=== PATIENT | male | born 1965 ===

== ENCOUNTER 2018-04-10 16:43 | Observation (INO) | payer OTHER ==
[2018-04-10] MEDS ORDERED: Sodium Chloride 0.9% 500 ML IV STA (17:30)
--- NOTE | 2018-04-10 17:30 | ED PDOC ---
Arrival/HPI - General Chief Complaint: Trauma Time Seen by Provider: 04/10/18 16:48 Historian: Patient - History of Present Illness Narrative History of Present Illness (Text): 04/10/18 17:27 53-year-old male with a history of HIV and diabetes presents today with headache neck pain low back pain and right foot pain status post fall. Patient states yesterday he slipped and fell down 4 stairs hitting his head injuring his neck and low back on the steps. Patient states he also twisted and injured his ankle and foot. No medications have been taken for pain at home. Patient denies nausea vomiting diarrhea or constipation. Patient denies abdominal pain. He denies decreased appetite. He denies bladder or bowel incontinence. Patient states he has a history of neuropathy so he has chronic paresthesias in the lower extremities. Past Medical History - Provider Review Nursing Documentation Reviewed: Yes - Travel History Have you recently traveled outside [place] w/in the past 3 mons?: No - Tetanus Immunization Tetanus Immunization: Unknown - Cardiac Hx Cardiac Disorders: No - Pulmonary Hx Respiratory Disorders: No - Neurological Hx Neurological Disorder: No - HEENT Hx HEENT Disorder: No - Renal Hx Renal Disorder: No - Endocrine/Metabolic Hx Endocrine Disorders: Yes Hx Diabetes Mellitus Type 2: Yes - Hematological/Oncological Hx Blood Disorders: Yes - Integumentary Hx Dermatological Disorder: No - Musculoskeletal/Rheumatological Hx Musculoskeletal Disorders: Yes - Gastrointestinal Hx Gastrointestinal Disorders: No - Genitourinary/Gynecological Hx Genitourinary Disorders: No - Psychiatric Hx Psychophysiologic Disorder: No Hx Substance Use: No - Surgical History Hx Orthopedic Surgery: Yes (R KNEE) Family/Social History - Physician Review Nursing Documentation Reviewed: Yes Family/Social History: Unknown Family HX Smoking Status: Current Some Days Smoker Hx Alcohol Use: Yes Frequency of alcohol use: Socially Hx Substance Use: No Allergies/Home Meds Allergies/Adverse Reactions: Allergies Sulfa (Sulfonamide Antibiotics) Allergy (Verified 04/11/18 00:16) RASH Home Medications: Home Meds Medication Instructions Recorded Confirmed Unobtainable 04/10/18 04/10/18 Emtricitab/Rilpiviri/Tenof Ala 1 each PO DAILY 04/11/18 04/11/18 [Odefsey Tablet] Gabapentin [Neurontin] 300 mg PO DAILY 04/11/18 04/11/18 Ranitidine HCl [Zantac 300] 300 mg PO HS 04/11/18 04/11/18 valACYclovir [Valtrex] 1 gm PO DAILY 04/11/18 04/11/18 Review of Systems - Review of Systems Constitutional: absent: Fatigue, Fevers Respiratory: absent: SOB, Cough Cardiovascular: absent: Chest Pain, Palpitations Gastrointestinal: absent: Abdominal Pain, Constipation, Diarrhea, Nausea, Vomiting, Appetite Changes Genitourinary Male: absent: Dysuria, Frequency, Hematuria Musculoskeletal: Arthralgias (right foot/ankle pain), Back Pain, Neck Pain Neurological: Headache. absent: Dizziness Physical Exam Vital Signs Reviewed: Yes Vital Signs Temp Pulse Resp BP Pulse Ox 04/10/18 16:50 98.4 F 90 17 116/67 97 Temperature: Afebrile Blood Pressure: Normal Pulse: Regular Respiratory Rate: Normal Appearance: Positive for: Well-Appearing, Non-Toxic, Comfortable Pain Distress: None Mental Status: Positive for: Alert and Oriented X 3 - Systems Exam Head: Present: Atraumatic Pupils: Present: PERRL Extroacular Muscles: Present: EOMI Ears: Present: Normal, NORMAL TM Mouth: Present: Moist Mucous Membranes Pharnyx: Present: Normal Neck: Present: Normal Range of Motion, Paraspinal Tenderness. No: MIDLINE TENDERNESS Respiratory/Chest: Present: Clear to Auscultation, Good Air Exchange. No: Respiratory Distress, Accessory Muscle Use, Tender to Palpation Cardiovascular: Present: Regular Rate and Rhythm Abdomen: Present: Other (no ecchymosis). No: Tenderness, Distention, Rebound, Guarding Back: Present: Paraspinal Tenderness (+ right flank tenderness; + large area of ecchymosis extending from the buttock to the mid right flank + induration and tenderness. ). No: Normal Inspection, CVA Tenderness, Midline Tenderness Upper Extremity: Present: Normal ROM Lower Extremity: Present: NORMAL PULSES, Normal ROM, Tenderness, Swelling, Neurovascularly Intact, Capillary Refill < 2 s, Other (Pelvis stable; + ttp over anterior thigh, no hip tenderness. no edema or erythema or ecchymosis noted. full rom of hip , knee, foot ankle. ). No: CALF TENDERNESS, Erythema Neurological: Present: GCS=15, Speech Normal Skin: Present: Warm, Dry, Normal Color Psychiatric: Present: Alert, Oriented x 3 Medical Decision Making ED Course and Treatment: 04/11/18 01:37 53yr old diabetic male with hx of HIV with right foot/ankle, back, neck pain s/p fall. pt with LARGE area of ecchymosis to right flank. cbc; wbc; 12.6 cmp; bun 39/ cr 1.2 pt/ptt wnl xray; right ankle' no fracture xray right foot no fracture xray right hip ; no fracture ct head; FINDINGS: BRAIN No acute intraparenchymal hemorrhage. No mass lesion. No CT evidence for acute territorial infarct. No midline shift or extra-axial collections. Minimal focal calcification is seen within the basal ganglia bilaterally; usually an idiopathic finding. VENTRICLES: No hydrocephalus. ORBITS: The orbits are unremarkable. SINUSES AND MASTOIDS: The paranasal sinuses and mastoid air cells are clear. BONES: No fracture. SOFT TISSUES: Unremarkable. IMPRESSION: No acute intracranial abnormality. Electronically signed on Apr 10, 2018 7:35:32 PM EST by: Nick Candelaria M.D., ALDO Certified By ABR & CBCCT Fellowship Trained MRI and CT Specialist ct c-spine: FINDINGS: ALIGNMENT: Bony alignment is anatomic. DEGENERATIVE CHANGES: There is mild hypertrophic and degenerative changes at the C3-C4 C4-C5 C5-C6 and C6-C7 levels. SOFT TISSUES: The prevertebral soft tissues are within normal limits. BONES: No acute fracture or aggressive appearing osseous lesion. IMPRESSION: No acute cervical spine abnormality. Mild hypertrophic and degenerative changes. Electronically signed on Apr 10, 2018 7:51:03 PM EST by: Bob Branch M.D., Certified by ABR, Diagnostic Radiology ct chest/abd/pelvis; FINDINGS: CHEST: LUNGS: No pulmonary mass. The lungs appear essentially clear. PLEURAL SPACES: No pneumothorax evident. No pleural effusions. HEART: No cardiomegaly. No pericardial effusion. LYMPH NODES: No lymphadenopathy is evident. ABDOMEN AND PELVIS: LIVER: Mild hepatomegaly. The liver measured an estimated 17.6 cm in the midclavicular line. No focal lesions. GALLBLADDER AND BILE DUCTS: The gallbladder appears within normal limits. No radioopaque gallstones are seen. No biliary ductal dilatation is evident. PANCREAS: Unremarkable. SPLEEN: Unremarkable. ADRENAL GLANDS: Unremarkable. KIDNEYS, URETERS, AND BLADDER: Unremarkable. No hydronephrosis or nephrolithiasis. No uterteral or bladder calculi. The urinary bladder is normal in size and configuration. STOMACH AND BOWEL: There is some retained food debris noted within the stomach. No evidence of bowel obstruction. No evidence suggesting enteritis or colitis. APPENDIX: No evidence of acute appendicitis on CT examination. PERITONEUM: No free fluid. No free air. LYMPH NODES: No lymphadenopathy is evident. VASCULATURE: No evidence of abdominal aortic aneurysm. REPRODUCTIVE: The seminal vesicles appeared normal and symmetrical in size. There is prostatic hypertrophy noted. The prostate gland measured 5.6 cm transversely. BONES: No acute osseous abnormality. SOFT TISSUES: A large lower right flank subcutaneous hematoma (density measurement 65.5 HU) is noted measuring approximately 12.2 x 5.0 cm in cranial-caudal and AP dimensions respectively. IMPRESSION: 1. No acute intra-thoracic abnormality. 2. Hepatomegaly. 3. Prostatic hypertrophy. Measurement is given above. 4. A large lower posterior right flank subcutaneous hematoma is identified as described above. Electronically signed on Apr 10, 2018 8:24:53 PM EST by: Nick Candelaria M.D., ALDO Certified By ABR & CBCCT Fellowship Trained MRI and CT Specialist pt feeling slightly better after medications; states morphine worked initially, but pain has returned slightly. all results discussed in depth with patient and his . case discussed with dr. dias; will admit observational status for monitoring H&H will get surgical consult dr. bhat case discussed with resident care supervisor dr. turner who evaluated patient at bedside. pt seen and evaluated by dr. Martin. impression; hematoma, back, head injury, neck pain, leg pain, ankle pain, foot pain admit observational status to med/surg Reassessment Condition: Re-examined, Improving,but remains with symptoms - RAD Interpretation Radiology Orders: 04/10/18 17:20 CERVICAL SPINE W/O CONTRAST [CT] Stat CHEST,ABD,PEL W/IV CONT ONLY [CT] Stat HEAD W/O CONTRAST [CT] Stat Disposition/Present on Arrival - Present on Arrival Any Indicators Present on Arrival: No History of DVT/PE: No History of Uncontrolled Diabetes: No Urinary Catheter: No History of Decub. Ulcer: No History Surgical Site Infection Following: None - Disposition Have Diagnosis and Disposition been Completed?: Yes Diagnosis: Back pain, Traumatic hematoma of lower back, Ankle pain, Foot pain, Leg pain, Neck pain, Head injury Disposition: HOSPITALIZED Disposition Time: 19:40 Patient Plan: Observation Condition: FAIR
[2018-04-10 17:48] LABS: BASO # 0.03 K/mm3 (0.0-2.0); BASO % 0.2 % (0.0-3.0); EOS % 0.2 % (1.5-5.0); INR 1.01; LYMPH % 15.5 % (22.0-35.0); MEAN CELL VOLUME 86.5 fl (80.0-105.0); MEAN CORPUSCULAR HEMOGLOBIN 30.1 pg (25.0-35.0); MEAN CORPUSCULAR HGB CONC 34.8 g/dl (31.0-37.0); MEAN PLATELET VOLUME 11.8 fl (7.0-11.0); MONO % 8.2 % (1.0-6.0); PARTIAL THROMBOPLASTIN TIME 28.7 Seconds (26.9-38.3); PROTHROMBIN TIME 11.2 SECONDS (9.4-12.5); RBC 3.99 10^6/uL (3.5-6.1); RED CELL DISTRIBUTION WIDTH 14.3 % (11.5-14.5); WHITE BLOOD COUNT 12.6 10^3/uL (4.5-11.0)
[2018-04-10 17:53] LABS: ALB/GLOB RATIO 1.4 (1.1-1.8); ALBUMIN 4.2 g/dL (3.0-4.8); ALT/SGPT 35 U/L (7-56); AST/SGOT 60 U/L (17-59); BLOOD UREA NITROGEN 39 mg/dL (7-21); CALCIUM 8.8 mg/dL (8.4-10.5); GFR NON-AFRICAN AMERICAN > 60
[2018-04-10 18:10] LABS: URINE BILIRUBIN NEGATIVE (NEGATIVE); URINE BLOOD NEGATIVE (NEGATIVE); URINE GLUCOSE (UA) NEGATIVE (NEGATIVE); URINE LEUKOCYTE ESTERASE NEGATIVE Leu/uL (NEGATIVE); URINE PROTEIN NEGATIVE mg/dL (<30 mg/dL); URINE UROBILINOGEN 0.2 E.U./dL (<1 E.U./dL)
[2018-04-10 18:16] LABS: URINE APPEARANCE CLEAR (CLEAR); URINE COLOR YELLOW (YELLOW)
[2018-04-10] MEDS ORDERED: Morphine 2 mg/ml ISec IVP STA ×2 (18:42→21:37)
[2018-04-10] MEDS ORDERED: Iohexol 350 MG/100 ML VIAL ONE (18:47)
[2018-04-10] MEDS: Sodium Chloride 0.9% 1,000 ML IV SCH (22:13)
--- NOTE | 2018-04-10 23:44 | CP.PCM.CON ---
History of Present Illness - History of Present Illness History of Present Illness: General Surgery Consult for Dr. Aparicio This is a 53M with a PMH of HTN, HIV, DM, who presents after he slipped down the stairs 3 days ago. He reports he hurt his right flank however he came to the hospital now because of the purple discoloration of his skin (echymosis). He denies any diziness or SOB. He deneis any chest pain fevers chills or SOB. He denies any bloody bowel movements or bloody urine. He is tolerating diet. PMH: HIV, HTN PSH: Appendix, Knee ALL: NKDA Social: Denies Vices Review of Systems - Review of Systems Review of Systems: 12 point review of symptoms conducted and negative aside from pain over hematoma. Past Patient History - Tetanus Immunizations Tetanus Immunization: Unknown - Past Social History Smoking Status: Current Some Days Smoker - CARDIAC Hx Cardiac Disorders: No - PULMONARY Hx Respiratory Disorders: No - NEUROLOGICAL Hx Neurological Disorder: No - HEENT Hx HEENT Problems: No - RENAL Hx Chronic Kidney Disease: No - ENDOCRINE/METABOLIC Hx Endocrine Disorders: Yes Hx Diabetes Mellitus Type 2: Yes - HEMATOLOGICAL/ONCOLOGICAL Hx Blood Disorders: Yes - INTEGUMENTARY Hx Dermatological Problems: No - MUSCULOSKELETAL/RHEUMATOLOGICAL Hx Musculoskeletal Disorders: Yes - GASTROINTESTINAL Hx Gastrointestinal Disorders: No - GENITOURINARY/GYNECOLOGICAL Hx Genitourinary Disorders: No - PSYCHIATRIC Hx Psychophysiologic Disorder: No Hx Substance Use: No - SURGICAL HISTORY Hx Orthopedic Surgery: Yes (R KNEE) Meds Allergies/Adverse Reactions: Allergies Allergy/AdvReac Type Severity Reaction Status Date / Time Sulfa (Sulfonamide Allergy RASH Verified 04/11/18 00:16 Antibiotics) - Medications Medications: Current Medications Sodium Chloride (Sodium Chloride 0.9%) 1,000 mls @ 100 mls/hr IV .Q10H CHARITY Last Admin: 04/10/18 22:13 Dose: 100 mls/hr Physical Exam - Constitutional Appears: Non-toxic, No Acute Distress - Head Exam Head Exam: ATRAUMATIC, NORMOCEPHALIC - Eye Exam Eye Exam: EOMI - ENT Exam ENT Exam: Mucous Membranes Moist - Respiratory Exam Respiratory Exam: NORMAL BREATHING PATTERN - Cardiovascular Exam Cardiovascular Exam: +S1, +S2 - GI/Abdominal Exam GI & Abdominal Exam: Soft. absent: Distended, Firm, Guarding, Hernia, Rebound, Rigid, Tenderness - Extremities Exam Extremities exam: Positive for: normal inspection - Back Exam Additional comments: Large flank echymosis with flank hematoma on right side - Skin Skin Exam: Dry, Intact Results - Vital Signs Recent Vital Signs: Last Vital Signs Temp 98.4 F 04/10/18 16:50 Pulse 70 04/10/18 22:00 Resp 18 04/10/18 22:00 BP 120/74 04/10/18 22:00 Pulse Ox 98 04/10/18 22:00 - Labs Result Diagrams: 04/10/18 17:30 04/10/18 17:30 Labs: Laboratory Results - last 24 hr 04/10/18 04/10/18 04/10/18 17:30 17:30 17:30 WBC 12.6 H RBC 3.99 Hgb 12.0 L Hct 34.5 L MCV 86.5 MCH 30.1 MCHC 34.8 RDW 14.3 Plt Count 206 MPV 11.8 H Neut % (Auto) 75.9 H Lymph % (Auto) 15.5 L [place] % (Auto) 8.2 H Eos % (Auto) 0.2 L Baso % (Auto) 0.2 Lymph # (Auto) 2.0 [place] # (Auto) 1.0 H Eos # (Auto) 0.0 Baso # (Auto) 0.03 Absolute Neuts (auto) 9.58 H PT 11.2 INR 1.01 APTT 28.7 Sodium 136 Potassium 4.0 Chloride 104 Carbon Dioxide 24 Anion Gap 12 BUN 39 H Creatinine 1.2 Est GFR ( Amer) > 60 Est GFR (Non-Af Amer) > 60 Random Glucose 114 H Calcium 8.8 Total Bilirubin 0.6 AST 60 H ALT 35 Alkaline Phosphatase 53 Total Protein 7.4 Albumin 4.2 Globulin 3.1 Albumin/Globulin Ratio 1.4 Urine Color Urine Appearance Urine pH Ur Specific Isabel Urine Protein Urine Glucose (UA) Urine Ketones Urine Blood Urine Nitrate Urine Bilirubin Urine Urobilinogen Ur Leukocyte Esterase 04/10/18 17:50 WBC RBC Hgb Hct MCV MCH MCHC RDW Plt Count MPV Neut % (Auto) Lymph % (Auto) [place] % (Auto) Eos % (Auto) Baso % (Auto) Lymph # (Auto) [place] # (Auto) Eos # (Auto) Baso # (Auto) Absolute Neuts (auto) PT INR APTT Sodium Potassium Chloride Carbon Dioxide Anion Gap BUN Creatinine Est GFR ( Amer) Est GFR (Non-Af Amer) Random Glucose Calcium Total Bilirubin AST ALT Alkaline Phosphatase Total Protein Albumin Globulin Albumin/Globulin Ratio Urine Color Yellow Urine Appearance Clear Urine pH 6.0 Ur Specific Isabel >= 1.030 Urine Protein Negative Urine Glucose (UA) Negative Urine Ketones Negative Urine Blood Negative Urine Nitrate Negative Urine Bilirubin Negative Urine Urobilinogen 0.2 Ur Leukocyte Esterase Negative - Imaging and Cardiology CT scan - pelvis Status: Image reviewed by me CT scan - abdomen Status: Image reviewed by me Assessment & Plan - Assessment and Plan (Free Text) Assessment: 53M s/p fall day 3 with right gluteal hematoma No surgical managment at this time Follow h/h Will continue to monitor D/W Dr. Markus Braga PGY3
[2018-04-11] MEDS ORDERED: Influenza Vaccine 60 mcg/0.5 mL SYR (4YR UP) IM ONE (00:46)
[2018-04-11] MEDS ORDERED: Pneumococcal 23-Valent Vaccine IM ONE (00:46)
[2018-04-11 00:47] VITALS: BMI 34.7
[2018-04-11 01:18] VITALS: PULSE 77; TEMP 98.1
[2018-04-11] MEDS: Sodium Chloride 0.9% 1,000 ML IV SCH (02:35)
--- NOTE | 2018-04-11 08:33 | RAD ---
Date of service: 04/10/2018 PROCEDURE: Right Foot Radiographs. HISTORY: foot pain/ ankle pain COMPARISON: None. FINDINGS: BONES: No acute fracture or destructive bony lesion identified. JOINTS: Dorsiflexion deformity of the 5th metatarsophalangeal joint with hyperflexion at the interphalangeal joint of the small digit. Both likely related to congenital foreshortening of the 5th metatarsal bone. SOFT TISSUES: Normal. OTHER FINDINGS: None. IMPRESSION: No acute fracture or dislocation. 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
--- NOTE | 2018-04-11 08:34 | RAD ---
Date of service: 04/10/2018 PROCEDURE: Right Ankle Radiographs. HISTORY: foot pain/ankle pain s/p fall COMPARISON: None available. FINDINGS: BONES: No acute fracture or destructive bony lesion identified. JOINTS: Normal. No osteoarthritis. Ankle mortise maintained. Talar dome intact SOFT TISSUES: Normal. OTHER FINDINGS: None. IMPRESSION: Unremarkable right ankle radiographs.
[2018-04-11 08:40] LABS: HEMOGLOBIN 10.9 g/dL (14.0-18.0); MEAN CELL VOLUME 87.5 fl (80.0-105.0); MEAN CORPUSCULAR HEMOGLOBIN 29.5 pg (25.0-35.0); MEAN CORPUSCULAR HGB CONC 33.7 g/dl (31.0-37.0); RBC 3.69 10^6/uL (3.5-6.1); WHITE BLOOD COUNT 7.4 10^3/uL (4.5-11.0)
--- NOTE | 2018-04-11 08:49 | CT ---
Date of service: 04/10/2018 PROCEDURE: CT HEAD WITHOUT CONTRAST. HISTORY: headache COMPARISON: None available. TECHNIQUE: Axial computed tomography images were obtained through the head/brain without intravenous contrast. Radiation dose: Total exam DLP = 1045.67 mGy-cm. This CT exam was performed using one or more of the following dose reduction techniques: Automated exposure control, adjustment of the mA and/or kV according to patient size, and/or use of iterative reconstruction technique. FINDINGS: HEMORRHAGE: No intracranial hemorrhage. BRAIN: No mass effect or edema. No atrophy or chronic microvascular ischemic changes. VENTRICLES: Unremarkable. No hydrocephalus. CALVARIUM: Unremarkable. PARANASAL SINUSES: Unremarkable as visualized. No significant inflammatory changes. MASTOID AIR CELLS: Unremarkable as visualized. No inflammatory changes. OTHER FINDINGS: The report concurs with the preliminary [facility] report IMPRESSION: No acute intracranial findings
--- NOTE | 2018-04-11 08:51 | CT ---
Date of service: 04/10/2018 PROCEDURE: CT Cervical Spine without contrast HISTORY: neck pain COMPARISON: None available. TECHNIQUE: Axial computed tomography images were obtained of the cervical spine without the use of intravenous contrast. Coronal and sagittal reformatted images were created and reviewed. Radiation dose: Total exam DLP = 537.4 mGy-cm. This CT exam was performed using one or more of the following dose reduction techniques: Automated exposure control, adjustment of the mA and/or kV according to patient size, and/or use of iterative reconstruction technique. FINDINGS: VERTEBRAE: No fracture. Normal alignment. No destructive bony lesion. DISCS/SPINAL CANAL/NEURAL FORAMINA: No significant central canal or neural foraminal stenosis. Discs heights are grossly preserved. PARASPINAL SOFT TISSUES: Unremarkable. OTHER FINDINGS: The report concurs with the preliminary [facility] report IMPRESSION: Unremarkable CT of the cervical spine.
--- NOTE | 2018-04-11 09:04 | CT ---
Date of service: 04/10/2018 PROCEDURE: CT Chest, Abdomen and Pelvis without intravenous contrast HISTORY: fall down stairs; right sided flank bruise COMPARISON: None available. TECHNIQUE: Radiation dose: Total exam DLP = 1926.69 mGy-cm. This CT exam was performed using one or more of the following dose reduction techniques: Automated exposure control, adjustment of the mA and/or kV according to patient size, and/or use of iterative reconstruction technique. FINDINGS: CT CHEST WITHOUT CONTRAST: LUNGS: Clear. No nodule, mass or consolidation. MEDIASTINUM: Unremarkable. Normal caliber aorta and pulmonary arterial trunk. Normal size heart. LYMPH NODES: Unremarkable. PLEURA: Unremarkable. No pneumothorax. No pleural fluid. BONES: Unremarkable. OTHER FINDINGS: None. CT ABDOMEN AND PELVIS: LIVER: Unremarkable. No gross lesion or ductal dilatation. GALLBLADDER AND BILE DUCTS: Unremarkable. PANCREAS: Unremarkable. No gross lesion or ductal dilatation. SPLEEN: Unremarkable. ADRENALS: Unremarkable. No mass. KIDNEYS AND URETERS: Unremarkable. No hydronephrosis. No solid mass. VASCULATURE: No aortic atherosclerotic calcification or mural plaque present. Unremarkable. No aortic aneurysm. BOWEL: Unremarkable. No obstruction. No gross mural thickening. APPENDIX: Normal appendix. PERITONEUM: Unremarkable. No free fluid. No free air. LYMPH NODES: Unremarkable. No enlarged lymph nodes. BLADDER: Unremarkable. REPRODUCTIVE: Unremarkable. BONES: No acute fracture. OTHER FINDINGS: There is a subcutaneous hematoma over the right flank at the level of the iliac crests measuring 4.5 x 10.2 x 12.6 cm. The report concurs with the preliminary [facility] report IMPRESSION: Subcutaneous right flank hematoma. No acute intra-abdominal or intrathoracic abnormalities
--- NOTE | 2018-04-11 09:14 | RAD ---
Date of service: 04/10/2018 PROCEDURE: Right Femur Radiographs. HISTORY: right thigh pain s/p fall COMPARISON: None. TECHNIQUE: AP and Lateral Radiographs of the right femur. FINDINGS: FEMUR: No acute fracture or destructive bony lesion identified. Small bone island is identified at the intertrochanteric space proximal right femur. SOFT TISSUES: Normal. OTHER FINDINGS: None. IMPRESSION: Unremarkable radiographs of the right femur.
[2018-04-11 09:42] VITALS: BP 113/69; RESP 18; O2SAT 97
--- NOTE | 2018-04-11 14:08 | HP ---
HISTORY OF PRESENT ILLNESS: He is a nice 53-year-old man with history of HIV, diabetes, presents with headache, low-back pain, right foot pain. He is status post fall down steps. He slipped, he hit his head, injury in his neck and his back and twisted his ankle. He is not feeling well. I just seen here this morning in bed, go home, he has got a dog at home. He has diabetes, he tells us. Blood disorders, musculoskeletal issues. He had right knee surgery. FAMILY HISTORY: Unknown. SOCIAL HISTORY: He still smokes cigarettes. He drinks alcohol. Denies drugs. ALLERGIES: HE HAS ALLERGIES TO SULFA. MEDICATIONS: He is on HIV meds, does not know the names they are at home. Neurontin, Zantac, Valtrex. REVIEW OF SYSTEMS: He had no fevers, no fatigue, no shortness of breath, no cough, no chest pain or palpitations. No abdominal pain, constipation, nausea, vomiting, diarrhea. No problems urinating. He has got bad arthralgias in the right foot, right ankle, right back, his neck, does have a headache. PHYSICAL EXAMINATION: VITAL SIGNS: Temperature 98.4, 90 pulse, 17 respiratory rate, 116/67 blood pressure, 97% O2 sat. GENERAL: He is crying at this time, wanting to go home to his dog. He does not want to be in the hospital anymore. I have a feelings, he is going to AMA before we get the testing done. He has no fevers. No fatigue. No shortness of breath. No cough. No chest pain or palpitations. No abdominal pain, constipation, diarrhea, nausea, vomiting. No appetite changes, no going to the bathroom issues. HEENT: Head is atraumatic, normocephalic. Extraocular muscles are intact. Pupils react to light. Throat is moist. NECK: Tender, but he has got good range of motion. LUNGS: Clear to auscultation. No wheezes, no rhonchi, no rales. HEART: Regular rate. ABDOMEN: Soft and nontender. Positive bowel sounds. No guarding, no rebound, no CVA tenderness. BACK: On the other side. On the right flank, he has got may be a 40 inches x 20 inches hardened ecchymoses, very tender. We call in Surgery to evaluate. EXTREMITIES: No edema of lower extremities. He does have right ankle, right leg tenderness to palpation and multiple x-rays done. He needs physical therapy to walk and was very tender to palpation. Normal speech. GCS is 15. Alert and oriented x3. SKIN: Warm. Right side 40 inches x 20 inches of ecchymoses, hard to touch. Alert and oriented x3. He is crying. He wants to go home. DIAGNOSTIC DATA: He had multiple tests done. Cervical spine, CAT scan, head CT, ankle and foot x-rays and normal. Chest, abdomen and pelvis is pending. CAT scan of the femur, the x-ray is also pending. He has a 7.4 white count, was 12.6 when he came in. His hemoglobin was 12, it is down to 10.9 he lost a gram of hemoglobin, 157 platelets. Sodium 136, potassium 4, BUN 39, creatinine 1.2, GFR 60, sugar is 114, calcium is 8.8, total bili is 0.6, AST is 60, ALT 35, alk phos 53, total protein 7.4. Urine was clean, although he is crying and wants to be discharge. I have to wait for the femur x-ray to come back. The CAT scan of the chest, abdomen and pelvis to come back. He has got severe swelling and ecchymosis, although surgery saw him and said there is nothing for them to do. I got await for the rest of tests to come back before we can discharge him. He has a fall with severe, the largest ecchymotic areas seen with tenderness. I got await for the rest of the test to come back before we can discharge him and I hope he stays, the rest of the results to come back before he and hopefully if everything comes back normal, I will then discharge him when it is appropriate. He is here for severe back pain, severe ecchymotic area. Chapo Carroll DO LUPILLO
--- NOTE | 2018-04-14 21:54 | DS ---
HOSPITAL COURSE: He came in with a fall. He has a very severe back pain, status post ecchymosis, severe swelling in the back from bleeding. He is for the most part fairly stable. Hemoglobin did go from 12 to 10.9. He was seen by Surgery, they said they were not going to do anything. He wants to go home and he was discharged home. To follow up with his outpatient doctor. He is to get a CBC in the next week. Chapo Carroll DO
== END 2018-04-11 12:00 | disposition home or self-care (01) ==
LOC: ED 16:43 → ERH 21:37 → 3RNO 23:51
PROVIDERS: ADMIT Family Medicine; ATTEND Family Medicine
DX: S30.0XXA Contusion of lower back and pelvis, initial encounter (principal); S09.90XA Unspecified injury of head, initial encounter; M79.671 Pain in right foot; M54.5 Low back pain; Z21 Asymptomatic human immunodeficiency virus [HIV] infection status; N40.0 Benign prostatic hyperplasia without lower urinary tract symptoms; E11.9 Type 2 diabetes mellitus without complications; I10 Essential (primary) hypertension; F17.210 Nicotine dependence, cigarettes, uncomplicated; W10.9XXA Fall (on) (from) unspecified stairs and steps, initial encounter; X50.1XXA Overexertion from prolonged static or awkward postures, initial encounter; Z88.2 Allergy status to sulfonamides
CPT/HCPCS: 36415; 70450; 71260; 72125; 73552; 73610; 73630; 74177; 80053; 81003; 85025; 85027; 85610; 85730; 96361; 96374; 96375; 96376; 97116; 97161; 99285; G0378; G8978; G8979; J2270; J2405; J7030; J7040; Q9967